=== PATIENT | female | born 1950 | race American Indian/Alaskan Native ===

== ENCOUNTER 2021-01-25 07:22 | Day surgery (SDC) | payer MEDICARE, OTHER ==
[2021-01-25] MEDS ORDERED: CLOPIDOGREL 300 MG TAB PO ONE (07:56)
[2021-01-25] MEDS ORDERED: SODIUM CHLORIDE 0.9% 500 ML 500 ML IV SCH (08:00)
[2021-01-25] MEDS ORDERED: ASPIRIN 81 MG TAB CHEW PO SCH (08:30)
[2021-01-25 08:44] LABS: Basophils # (Auto) 0.1 K/mm3 (0.0-0.1); Eosinophils # (Auto) 0.2 K/mm3 (0.0-0.4); Eosinophils % (Auto) 2.2 % (0.0-4.3); Hematocrit 38.9 % (30.3-42.9); Hemoglobin 12.1 gm/dl (10.1-14.3); Mean Corpuscular HGB Conc 31 % (30-34); Mean Corpuscular Volume 79 fl (79-97); Monocytes # (Auto) 0.5 K/mm3 (0.0-0.8); Monocytes % (Auto) 5.5 % (0.0-7.3); Platelet Count 211 K/mm3 (140-440); Red Cell Distribution Width 18.3 % (13.2-15.2)
[2021-01-25 08:48] LABS: Lymphocytes % (Auto) 7.6 % (13.4-35.0)
[2021-01-25 08:49] LABS: Basophils % (Auto) 1.1 % (0.0-1.8); Calcium 9.6 mg/dL (8.4-10.2); Lymphocytes # (Auto) 0.7 K/mm3 (1.2-5.4)
[2021-01-25] MEDS ORDERED: CLOPIDOGREL 75 MG TAB PO NR (09:00)
[2021-01-25 09:03] LABS: INR 1.04 (0.87-1.13)
[2021-01-25 09:04] LABS: Partial Thromboplastin Time 37.5 Sec. (24.2-36.6)
[2021-01-25] MEDS ORDERED: LIDOCAINE (2%) 20 MG/1 ML VIAL 20 ML MDV INFILTRATI ONE ×3 (09:51→11:03)
[2021-01-25] MEDS ORDERED: HEPARIN/NS 5000 UNIT/500ML 1,000 ML IR ONE (09:51)
[2021-01-25] MEDS ORDERED: HEPARIN/NS 5000 UNITS/500 ML BAG (CATH LAB ONLY) IR ONE ×2 (10:35)
[2021-01-25] MEDS ORDERED: fentaNYL 100 MCG/2 ML INJ ONE (10:38)
[2021-01-25] MEDS ORDERED: MIDAZOLAM 2 MG/2 ML INJ ONE (10:38)
[2021-01-25] MEDS ORDERED: fentaNYL 100 MCG/2 ML INJ IV ONE (11:02)
[2021-01-25] MEDS ORDERED: MIDAZOLAM 2 MG/2 ML INJ IV ONE (11:02)
--- NOTE | 2021-01-25 11:23 | Cardiac Catherization Report ---
DATE OF SERVICE: 01/25/2021 CARDIAC CATHETERIZATION REPORT REASON FOR PROCEDURE: The patient is a 70-year-old woman with pulmonary hypertension, referred for right heart catheterization for assessment of pulmonary artery hypertension. PROCEDURES: 1. Right heart catheterization. 2. Sedation time start 10:59, and 11:08. DESCRIPTION OF PROCEDURE: The patient was prepped and draped in a sterile fashion after informed consent. The right femoral vein was entered using Seldinger technique followed by placement of an 8-Pashto sheath. A [place] catheter was then advanced to the pulmonary artery position. Pulmonary artery pressures were recorded and the [place] catheter was withdrawn into the right ventricle where right ventricular pressures were recorded and finally into the right atrium where right atrial pressures were recorded. The [place] catheter was then withdrawn. The sheath was removed, and hemostasis was achieved using manual compression. The patient was returned to the postprocedure unit in stable condition. There were no complications. FINDINGS: HEMODYNAMICS: The mean right atrial pressure was 10. Right ventricular pressure was 90/15. Pulmonary artery pressure was 95/32 with a mean of 65. The mean pulmonary artery wedge pressure was 25, with V waves of 50. CONCLUSION: Severe pulmonary hypertension, with pulmonary artery pressures of 95/32, mean of 65. TID: [id number] RECEIPT: [id number] UZILE/GRAY
[2021-01-25 13:35] VITALS: BP 151/48
--- NOTE | 2021-01-26 08:40 | Electrocardiograph Report ---
[facility] Test Date: 2021-01-25 Test Time: 08:49:08 Pat Name: NED MARCELINO Department: Room: Gender: F Roving Sizer: HARJINDER : 1950 Requested By: LAURA KARIMI Order Number: [id number] Reading MD: Gian Harrison Measurements Intervals [place] Rate: 72 P: 61 MN: 172 QRS: 10 QRSD: 112 T: 120 QT: 423 QTc: 465 Interpretive Statements Sinus rhythm Ventricular premature complex Probable left ventricular hypertrophy Nonspecific T abnormalities, lateral leads No previous ECG available for comparison Electronically Signed On 01-26-2021 8:40:26 EST by Gian Harrison
[2021-01-27] MEDS ORDERED: traMADol 50 MG TAB PO PRN (12:41)
--- NOTE | 2021-01-27 12:44 | Discharge Summary ---
Short Stay Discharge Plan Weight Bearing Status: Full Weight Bearing Diet: low fat, low cholesterol, low salt Wound: keep clean and dry Special Instructions: no heavy lifting (2 days) Additional Instructions: FOLLOW UP WITH PRIMARY MEDICAL DOCTOR IN 1 WEEK, RETURN TO EMERGENCY ROOM FOR MEDICAL EMERGENCY. Follow up with: ALFONSO KNOWLES MD [Primary Care Provider] - 7 Days NIMA TRAYLOR MD [Staff Physician] - 7 Days Forms: CardCath PCI D/C Instructions
== END 2021-01-25 07:23 | disposition home or self-care (01) ==
LOC: CATHLABREC 07:22
PROVIDERS: ATTEND Internal Medicine Cardiovascular Disease
DX: I13.0 Hypertensive heart and chronic kidney disease with heart failure and stage 1 through stage 4 chronic kidney disease, or unspecified chronic kidney disease (principal); N18.9 Chronic kidney disease, unspecified; I50.9 Heart failure, unspecified; E10.22 Type 1 diabetes mellitus with diabetic chronic kidney disease; E78.00 Pure hypercholesterolemia, unspecified; I25.10 Atherosclerotic heart disease of native coronary artery without angina pectoris; M10.9 Gout, unspecified; Z87.891 Personal history of nicotine dependence; Z79.82 Long term (current) use of aspirin; Z79.4 Long term (current) use of insulin; Z79.899 Other long term (current) drug therapy; Z98.890 Other specified postprocedural states
CPT/HCPCS: 36415; 80048; 85025; 85610; 85730; 93005; 93451; J1644; J2250; J3010; J3490; J7040